=== PATIENT | female | born 1940 | race Caucasian/White ===

== ENCOUNTER → 2016-09-24 | Outpatient (CLI) | payer OTHER, MEDICARE ==
[2016-08-06 16:14] VITALS: BP 148/69
[~2016-09-24] MED LIST: REGADENOSON 0.4 MG/5 ML DISP.SYRIN. IV ONE
--- NOTE | 2016-09-24 13:16 | RAD ---
APPROVED REPORT Test Type: Pharmacological Stress Nurse/Tech: Edmond Campoverde RN Test Indications: Chest pain Cardiac History: see ehr Medications: see ehr Medical History: see ehr Resting ECG: SR Resting Heart Rate: 60 bpm Resting Blood Pressure: 132/67mmHg Pretest Chest Pain: None Nurse/Tech Notes Lungs CTA, S1, S2 Consent: The procedure was explained to the patient in lay terms. Informed consent was witnessed. Darnell eout was entered into [facility]. History and Stress Test performed by Yassine JainN[employer]. Details Pharmacologic stress testing was performed using 0.4mg per 5ml of regadenoson given intravenously ove r 7-10 seconds. Stress Symptoms No chest pain or symptoms. POST EXERCISE Reason for Termination: Infusion complete Max HR: 81 bpm Max Blood Pressure: 135/52mmHg Blood Pressure response to exercise: Normal blood pressure response during stress. Chest Pain: No. Arrhythmia: No. ST Change: No. INTERPRETATION Stress EKG Conclusion: Baseline EKG showed sinus rhythm. No ischemic changes at peak stress. No arr hythmias. Imaging Protocol IMAGE PROTOCOL: Rest Tc-99m/stress Tc-99m 1 day Rest: Stress: Viability: Radiopharm.Tc99m [id number] Sestamibi Dose11.9mCi 36.9mCi Duration 15min. 10min. Img Date 09/24/2016 09/24/2016 Inj-Img [id number]. 60min. Rest Admin Site:IV - Right AntecubitalAdministrator:ASHISH Solis, ARRT (R)(N) Stress Admin Site: IV - Right AntecubitalAdministrator: Parvez Virgen, RT (R)(N) STRESS DATA End Diast. Vol.84.0mlAv. Heart Rate66.0bpm LVEDV index BSA2.0mlCardiac Output0.1L/min End Syst. Vol.16.0mlCO Index BSA4.4L/min LVESV index BSA0.0mlMyocardial Wqax156.0g Eject. Dqzkeesb62.0% Stress Rates Pk. Fill Rate2.47EDV/secLVtime Pk. Fill 275.81msec Pk. Empty Rate4.85ESV/secLVtime Pk. Vjqge805.22msec 1/3 Pk. Fill1.31EDV/sec Stress Scores Regional WT0.00Summed WT1.00 Regional WM0.00Summed WM0.00 Study quality was good. Left Ventricular size was Normal at Rest and Stress. Lung uptake was Normal. Left Ventricular ejection fraction is 81%. The rest and stress images show normal perfusion, normal contraction and thickening. LV Perf. Quant 17 Seg. SSS0.00 17 Seg. SRS0.00 17 Seg. SDS0.00 Stress Defect Extent (% LAD)0.00Rest Defect Extent (% LAD)4.40Rev. Defect Extent (% LAD)0.00 Stress Defect Extent (% LCX) 0.00Rest Defect Extent (% LCX)0.00Rev. Defect Extent (% LCX)0.00 Stress Defect Extent (% RCA)0.00Rest Defect Extent (% RCA)0.00Rev. Defect Extent (% RCA)0.00 Stress Defect Extent (% CAL)0.00Rest Defect Extent (% CAL)1.50Rev. Defect Extent (% CAL)0.00 Conclusion 1. Regadenoson cardioisotope stress test did not show any evidence of ischemia or infarct. 2. Normal left ventricular systolic function with ejection fraction calculated at 81%. 3. Low risk for cardiac events.
== END | disposition home or self-care (01) ==
LOC: NM 08:04
PROVIDERS: ATTEND Nurse Practitioner
DX: R06.02 Shortness of breath (principal); R55 Syncope and collapse; I10 Essential (primary) hypertension; Z79.01 Long term (current) use of anticoagulants; R07.9 Chest pain, unspecified
CPT/HCPCS: 78452; 93017; 96374; 96375; 96376; A9500; J2785

== ENCOUNTER → 2017-02-01 | Outpatient (CLI) | payer MEDICARE, OTHER ==
[2016-08-06 16:14] VITALS: BP 148/69
[~2017-02-01] MED LIST changes: +ASPI-482 PO; +CHOL500016 PO; +CITA20TA5 PO; +HYDR12.53 PO; +IOHEXOL 180 MG/ML 10 ML VIAL. ONE; +LEVO125T5 PO; -REGADENOSON 0.4 MG/5 ML DISP.SYRIN. IV ONE; +methylPREDNISolone ACETATE 40 MG/ML VIAL. ONE; +methylPREDNISolone ACETATE 80 MG/ML VIAL. ONE
--- NOTE | 2017-02-02 04:20 | PAIN ---
DATE OF SERVICE: 02/01/2017 CHIEF COMPLAINT: Low back, bilateral lower extremity pain. HISTORY OF PRESENT ILLNESS: This is a 76-year-old female who presents with history of pain for "many years" worse over the past 6 months or so, pain in the low back radiating to bilateral lower extremities with leg tingling, it is constant, sharp, stabbing pain that is burning in the feet, worse with standing and walking, better with lying down. The patient reports no specific injury or accident that she is aware of. The pain became gradually over time. The patient reports it awakens her from sleep at least 1 or 2 times at night, does not affect her ability to change positions at night, lying on one side or the other, but still awakens her when she lays either right or left side. The patient reports it does affect her bowel and bladder control. She has actually had some urinary incontinence when the pain is at its worse, but does not have currently. The patient reports she is using a cane to walk mostly in her right hand, but it does affect her ability to walk significantly. The patient has had physical therapy, chiropractic treatment as well as exercise, which she does on her own now. Physical therapy ____. Current chiropractic treatment with a chiropractor with good results, but not long lasting. The patient reports no medications she has taken for the pain. She did have an MRI scan, which was in 07/2016, which shows degenerative disk and facet disease, greatest at L3-L4 and L4-L5 without high grade stenosis, right lateral recess stenosis at L4-L5 and L3-L4 showing mild central spinal canal narrowing and bilateral neural foraminal narrowing and also mild right lateral recess narrowing with L4-L5 showing moderate right lateral recess stenosis. The patient reports no loss of motor function, but significant fatigability of both legs when ambulating. The patient rates her disability rate from 0-10, 10 being the worst, as a 7 with family and home responsibilities, social activity, occupation, 5 with self care and life support activities. PAST MEDICAL HISTORY: Significant for arthritis, diarrhea, hypertension and shortness of breath, tuberculosis as a child with lung scarring by her report, basal cell carcinomas in the past, depression, neuropathy, bipolar disorder. PAST SURGICAL HISTORY: Includes thyroidectomy, total hysterectomy, bilateral mastectomies for fibrocystic breast disease, lung surgery for fibrosis and scarring from the tuberculosis. CURRENT MEDICATIONS: Include vitamin D, citalopram, daily baby aspirin, hydrochlorothiazide, levothyroxine. ALLERGIES: THE PATIENT ALLERGIC TO MORPHINE. FAMILY HISTORY: Significant for no major medical problems or conditions that she is aware of. SOCIAL HISTORY: The patient drinks alcohol only very rarely, does not smoke or use any other recreational or illicit drugs. She is single. Lives in ____ [place] and lives in her own home and is currently retired. REVIEW OF SYSTEMS: The patient's review of systems is positive for those items mentioned in history of present illness. All systems reviewed and otherwise negative. It is complete, full and well documented on the patient's chart. PHYSICAL EXAMINATION: VITAL SIGNS: Today, blood pressure is 150/69, pulse 63, respirations 16, temperature 97.7 degrees Fahrenheit, height is 5 feet 7 inches, weighs 177 pounds. GENERAL: The patient is awake, alert, oriented, appropriate, very pleasant demeanor. HEENT: Head shows normocephalic, atraumatic. Extraocular movements are intact and symmetrical. Oral cavity shows mucous membranes moist and pink. Dentition is intact. NECK: Shows anterior throat supple without palpable lymphadenopathy noted. Swallow reflex is symmetrical. Neck shows full rotational motion of the cervical spine without difficulty or tenderness including extension and flexion. CHEST: Shows normal on inspection. Breath sounds clear to auscultation bilaterally. HEART: Shows S1 and S2 clear. No murmurs auscultated. ABDOMEN: Soft, nontender, nondistended. No palpable organomegaly is noted. No rebound or guarding demonstrated. BACK: Shows spine grossly midline. Normal appearing thoracic kyphosis and lumbar lordotic curvature. No previous bruises, lesions, rashes or scars are noted. Lumbar paraspinous musculature shows symmetrical on inspection. With palpation shows normal muscle girth and firm musculature, which is moderately tender with palpation, but only diffusely in the middle and lower distribution. Paraspinous muscles again are symmetrical, no evidence of atrophy, hypertrophy, no trigger points, no radiation of pain, no tenderness over the spinous processes, sacrum or sacroiliac regions. The patient shows good rotation and motion of lumbar spine, both laterally greater than 10 degrees right and left as well as extension greater than 10 degrees, forward flexion 45 degrees without increase in pain. EXTREMITIES: Lower extremities show deep tendon reflexes at 1+ in the patellar and tendo calcaneus tendons are equal. Motor exam is strong with 5/5 dorsiflexion, extension, quadriceps and hamstring flexion and are symmetrical as well. Peripheral pulses are 1+ posterior tibial and dorsalis pedis pulses. No peripheral edema is noted. No clubbing, no cyanosis. Lower extremities are warm and dry to touch, equal in color and appearance. Straight leg raise noted to be negative for reproduction of radicular symptoms bilaterally as is Gaenslen's and Mike's maneuvers without pain reported bilaterally. The patient is able to stand, stand on her toes without difficulty or loss of balance, walking with a normal-appearing gait, does not have her cane with her today. She has a fairly normal gait without favoring the right or left lower extremity for short walk in the office. IMPRESSION: 1. This is a 76-year-old female with long history of low back pain radiating to the bilateral lower extremities in a radicular fashion. 2. MRI scan of lumbar spine as noted. 3. Arthritis. 4. Hypertension. 5. History of tuberculosis. PLAN: Options were discussed with the patient including conservative medical management, physical therapy, interventional techniques. She would like to pursue with interventional techniques as she is already doing the chiropractic and physical therapy and her own exercises. We discussed the lumbar epidural steroid injection using description as well as anatomical models to describe the procedure. Risks were then discussed including, but not limited to bleeding, infection, possibility of epidural hematoma and subsequent neurologic compromise, dural puncture, headaches, spinal cord and/or nerve damage, side effects of steroid medication and poor results regarding pain control. The patient understands and wishes to proceed. The patient will return to clinic in approximately 2 weeks for followup. She was counseled as to return appointment, activity level and side effects to be aware of. DIAGNOSES: Lumbar radiculopathy with lumbar spinal stenosis, lumbar degenerative disk disease. PROCEDURE: Lumbar epidural steroid injection in translaminar approach at the L3-L4 level using C-arm fluoroscopic guidance under sterile prep and drape using local anesthetic. Medication injected is 120 mg of Depo-Medrol plus 10 mL of preservative-free normal saline and 2 mL of Isovue for contrast. CONDITION AT DISCHARGE: Stable. The patient tolerated procedure well, had no complications. LYLY GARIBAY MD DR: Akila JOB#: [id number] / [id number]
== END | disposition home or self-care (01) ==
LOC: PNCL 09:13
PROVIDERS: ATTEND Anesthesiology
DX: M51.16 Intervertebral disc disorders with radiculopathy, lumbar region (principal); M48.06 Spinal stenosis, lumbar region; I10 Essential (primary) hypertension; M19.90 Unspecified osteoarthritis, unspecified site; F32.9 Major depressive disorder, single episode, unspecified; G62.9 Polyneuropathy, unspecified; F31.9 Bipolar disorder, unspecified; Z86.11 Personal history of tuberculosis; Z90.710 Acquired absence of both cervix and uterus; Z79.82 Long term (current) use of aspirin; Z88.5 Allergy status to narcotic agent; Z72.89 Other problems related to lifestyle; Z85.9 Personal history of malignant neoplasm, unspecified
CPT/HCPCS: 62323; J1030; J1040

== ENCOUNTER → 2017-02-16 | Outpatient (CLI) | payer OTHER ==
[2016-08-06 16:14] VITALS: BP 148/69
== END | disposition home or self-care (01) ==
LOC: PNCL 09:36
PROVIDERS: ATTEND Anesthesiology
DX: M51.16 Intervertebral disc disorders with radiculopathy, lumbar region (principal); M48.01 Spinal stenosis, occipito-atlanto-axial region; Z88.6 Allergy status to analgesic agent
CPT/HCPCS: 62323; J1030; J1040

== ENCOUNTER → 2017-03-15 | Outpatient (CLI) | payer OTHER ==
[2016-08-06 16:14] VITALS: BP 148/69
[~2017-03-15] MED LIST changes: +[UNRECOGNIZED DRUG - OTHER]
--- NOTE | 2017-03-15 23:33 | PAIN ---
DATE OF SERVICE: 03/15/2017 PROGRESS NOTE FOR PAIN CLINIC DIAGNOSES: Lumbar radiculopathy with lumbar spinal stenosis, lumbar degenerative disk disease. HISTORY OF PRESENT ILLNESS: The patient is a 77-year-old female who returns for followup status post lumbar epidural steroid injections x 2. The patient reports very good decrease in pain by about 50% overall. The patient reports no new motor or sensory deficits, no new changes, bowel or bladder incontinence or other complaints, but still has significant reduction in pain. She has been increasing activity with much greater ease and comfort. She is very pleased with her progress. No longer having significant pain radiating to the lower extremities, was worse on the right than the left only very occasionally in the legs, now just in the low back, more on the right side. The patient reports her pain is anywhere from a 6-8 on a scale 10. It is currently a 6 on a scale 10 today, aching and dull and also some occasional shooting pain, but again very infrequently on the shooting pain. The patient also has some tingling in her feet bilaterally, which she attributes to peripheral neuropathy. The patient has no new motor or sensory deficits, no bowel or bladder incontinence or other complaints, sleeping better at night. Reports much better with sitting and lying down, not awaking her up at this time. PHYSICAL EXAMINATION: VITAL SIGNS: The patient's blood pressure 152/72, pulse 71, respirations are 20, temperature 97.8 degrees Fahrenheit, height is 5 feet 7 inches, weighs 175 pounds. GENERAL: The patient is awake, alert, oriented, appropriate, very pleasant demeanor. HEENT: Head shows normocephalic, atraumatic. Extraocular movements are intact, symmetrical. Oral cavity, mucous membranes are moist and pink. Dentition is intact. NECK: Shows anterior throat supple without palpable lymphadenopathy noted. Swallow reflex is symmetrical. Neck shows full rotational motion of cervical spine, both laterally greater than 45 degrees right and left as well as full extension, full forward flexion without pain or discomfort. CHEST: Shows normal with inspection. Breath sounds clear to auscultation bilaterally, no rales, rhonchi or wheezes are auscultated. HEART: Shows S1 and S2 clear. No murmurs are auscultated. ABDOMEN: Soft, nontender, nondistended. No palpable organomegaly, no rebound or guarding demonstrated. BACK: Shows spine grossly in the midline. Normal appearing thoracic kyphosis, cervical lordotic curvature and lumbar lordotic curvature. Lumbar paraspinous muscle shows symmetrical on inspection with palpation shows some mild tenderness in the low to mid distribution of paraspinous muscles, but only diffusely without radiation. The patient has good rotation and motion both laterally greater than 10 degrees right and left as well as extension greater than 10 degrees, forward flexion at 45 degrees without significant pain reported as well. The patient shows no tenderness over the spinous processes, sacrum or sacroiliac regions. EXTREMITIES: Lower extremities showed deep tendon reflexes at 1+/4 in the patellar and tendo calcaneus tendons are equal. Motor exam is strong with dorsiflexion, extension, quadriceps and hamstring flexion rated as 5/5 and symmetrical. Peripheral pulses are 1+ in the posterior tibial and dorsalis pedis pulses. No peripheral edema is noted. No clubbing or cyanosis. The patient is able to stand, stand on her toes without significant difficulty. She is walking with a normal appearing gait, not using any assistive device to ambulate. Options were discussed with the patient and the patient's old chart was reviewed as her current medication regimen and updated. Current review of systems updated today as well. We will proceed with a third in the series of lumbar epidural steroid injection today with fluoroscopic guidance. Risks were again discussed including, but not limited to bleeding, infection, possibility of epidural hematoma, subsequent neurologic compromise, dural puncture, headaches, spinal cord and/or nerve damage, side effects of steroid medication and poor results regarding pain control. The patient understands and wishes to proceed. The patient will return to the clinic in approximately 2 weeks for followup. She was counseled to return appointment, activity level and side effects to be aware of. Also discussed increasing the patient's activity as tolerated with stretching and strengthening exercises discussed as well. Also, the patient will keep a very close eye on her blood pressure, as she reports she has taken herself off of her blood pressure medication. I encouraged her to discuss this with her primary care physician. She reports that she will do this because she is thinking of having a checkup here soon anyway. As she has the palpitations now at home, I strongly encouraged her to make that appointment sooner than later. The patient understands and agrees and will follow up as scheduled. DIAGNOSIS: Lumbar radiculopathy with lumbar degenerative disk disease, lumbar spinal stenosis. PROCEDURE: Lumbar epidural steroid injection in translaminar approach in the L3-L4 level using C-arm fluoroscopic guidance under sterile prep and drape using local anesthetic. MEDICATIONS INJECTED: A total of 120 mg Depo-Medrol plus 10 mL preservative-free normal saline and 2 mL Isovue for contrast. CONDITION AT DISCHARGE: Stable. The patient tolerated the procedure well, had no complications. LYLY GARIBAY MD DR: JOSE F/abhijeet JOB#: [id number] / [id number]
== END | disposition home or self-care (01) ==
LOC: PNCL 11:33
PROVIDERS: ATTEND Anesthesiology
DX: M51.16 Intervertebral disc disorders with radiculopathy, lumbar region (principal); M48.06 Spinal stenosis, lumbar region; Z88.6 Allergy status to analgesic agent
CPT/HCPCS: 62323; J1030; J1040

== ENCOUNTER → 2017-10-21 | Outpatient (CLI) | payer OTHER ==
[~2017-10-21] MED LIST changes: -ASPI-482 PO; -CHOL500016 PO; -CITA20TA5 PO; -HYDR12.53 PO; +IOHEXOL 180 MG/ML 10 ML VIAL.; -IOHEXOL 180 MG/ML 10 ML VIAL. ONE; -LEVO125T5 PO; -[UNRECOGNIZED DRUG - OTHER]; +methylPREDNISolone ACETATE 40 MG/ML VIAL.; -methylPREDNISolone ACETATE 40 MG/ML VIAL. ONE; +methylPREDNISolone ACETATE 80 MG/ML VIAL.; -methylPREDNISolone ACETATE 80 MG/ML VIAL. ONE
== END | disposition home or self-care (01) ==
LOC: PNCL 13:05
DX: M51.16 Intervertebral disc disorders with radiculopathy, lumbar region (principal); G89.29 Other chronic pain; M48.061 Spinal stenosis, lumbar region without neurogenic claudication; Z79.82 Long term (current) use of aspirin; Z79.899 Other long term (current) drug therapy; Z87.448 Personal history of other diseases of urinary system
CPT/HCPCS: 62323; J1030; J1040; Q9965

== ENCOUNTER → 2017-11-04 | Outpatient (CLI) | payer OTHER | END | disposition home or self-care (01) | LOC: PNCL 10:07 | DX: M51.16 Intervertebral disc disorders with radiculopathy, lumbar region (principal); M48.061 Spinal stenosis, lumbar region without neurogenic claudication; G89.29 Other chronic pain; Z88.6 Allergy status to analgesic agent; Z79.899 Other long term (current) drug therapy | CPT/HCPCS: 62323; J1030; J1040; Q9965 ==

== ENCOUNTER → 2017-11-30 | Outpatient (CLI) | payer OTHER | LOC: PNCL 10:00 | DX: M51.16 Intervertebral disc disorders with radiculopathy, lumbar region (principal); M48.061 Spinal stenosis, lumbar region without neurogenic claudication | CPT/HCPCS: 62323; J1030; J1040; Q9965 ==

== ENCOUNTER → 2020-08-12 | Outpatient (CLI) | payer OTHER ==
[2016-08-06 16:14] VITALS: BP 148/69
[~2020-08-12] MED LIST changes: +ASPI-482 PO; +CHOL500016 PO; +CITA20TA6 PO; +HYDR12.575 PO; -IOHEXOL 180 MG/ML 10 ML VIAL.; +IOHEXOL 180 MG/ML 10 ML VIAL. ONE; +LEVO125T5 PO; +[UNRECOGNIZED DRUG - OTHER]; -methylPREDNISolone ACETATE 40 MG/ML VIAL.; +methylPREDNISolone ACETATE 40 MG/ML VIAL. ONE; -methylPREDNISolone ACETATE 80 MG/ML VIAL.; +methylPREDNISolone ACETATE 80 MG/ML VIAL. ONE
--- NOTE | 2020-08-12 09:51 | PDOC ---
Progress Note - Pain Clinic Date of Service: DOS: DATE: 08/12/20 TIME: 09:48 Diagnosis: Dx: Lumbar radiculopathy with lumbar spinal stenosis and lumbar degenerative disc disease History or Present Illness: HPI: 80-year-old female returns for follow-up last seen November 2017 patient underwent lumbar epidural steroid injections with very good results patient reports about 75% improvement at that time patient reports that she has had some increasing pain over the past year to year and a half but has been putting off getting geovani toribio patient reports she has increased neuropathy in both of her feet saline flat on her back helps decrease the pain as is sitting and generalized not awaken her from sleep at night patient reports initially she was doing great after last injection with distance walking doing household activities try with greater ease and comfort as well. Patient rates her pain now over the past several months has been about a 9 on a scale of 10 is worst least an average is a 9 today patient which is sharp and shooting constant in the low back and the left side rating the posterior gluteus posterior lateral thigh anterior thigh and groin at times on the left side only. Patient reports no motor or sensory deficits no bowel or bladder incontinence but significant increasing pain in the low back and left lower extremity. Patient reports she has held her Eliquis now for approximately 3 days. Physical Exam: VS: Blood pressure is 137/65 pulse 57 respirations are 20 temperature is 98.0 F height is 5 foot 6 inches weight is 170 pounds PE: PHYSICAL EXAMINATION: GENERAL: The patient is awake, alert, oriented, appropriate, very pleasant demeanor HEENT: Shows normocephalic, atraumatic. Extraocular movements are intact and symmetrical. Oral cavity: Mucous membranes moist and pink. Dentition is intact. NECK: Shows anterior throat supple without palpable lymphadenopathy noted. Swallow reflex symmetrical. CHEST: Shows normal on inspection. Breath sounds are clear bilaterally, no rales rhonchi or wheezes. HEART: Shows S1, S2 clear. No murmurs auscultated. ABDOMEN: Soft, nontender, nondistended, obese. No palpable organomegaly is noted. No rebound or guarding demonstrated. BACK: Shows spine grossly in the midline. Normal-appearing cervical lordotic curvature. There is slightly increased thoracic kyphosis, some minor flattening of the lumbar lordotic curvature. Lumbar paraspinous muscles show symmetrical on inspection, on palpation shows some moderate tenderness diffusely throughout the upper, middle and lower distribution of the paraspinous muscles, but without specific trigger points, without radiation of pain. The patient has good rotational motion of the lumbar spine, both laterally as well as extension and flexion without significant difficulty. No tenderness over the spinous processes, sacrum or sacroiliac regions. EXTREMITIES: Lower extremities show deep tendon reflexes 1+ in the patellar and tendo calcaneus tendons. Motor exam is 5 on a scale of 5 with right dorsiflexi on, extension, quadriceps and hamstring flexion and 5/5 on the left. Peripheral pulses are 1+ posterior tibial. No peripheral edema is noted bilaterally. Lower extremities are warm and dry to touch, equal in color and appearance. SKIN: Shows warm and dry, good turgor. No edema. No sores, rashes or bruising throughout. Procedure: Procedure: Options were discussed with the patient. Patient chart was reviewed as her current medication regimen updated current review of systems updated today as well. We will proceed with a first in the series lumbar epidural steroid injection today with fluoroscopic guidance. Risks were discussed including but not limited to: Bleeding, infection, possibility of epidural hematoma and subse quent neurological compromise, dural puncture, headaches, spinal cord and/or nerve damage, side effects of steroid medication, and poor results regarding pain control. Patient understands wished to proceed. She will return to clinic in approximate 2 weeks and follow-up with counselors return appointment typical and side effects to be aware of. Patient will restart her Eliquis August 13 Medication Injected: Med Injected: Procedure is lumbar epidural steroid injection under local anesthetic using sterile prep and drape at the L3-4 level using C-arm fluoroscopic guidance in both AP and lateral views medications injected is 120 mg Depo-Medrol + 10 mL preservative-free normal saline and 2 mL contrast- condition at discharge is stable patient tolerated procedure well had no complications. Condition at Discharge: Condition at Discharge: Condition at discharge stable, patient tolerated procedure well and had no complications. LYLY GARIBAY MD Aug 12, 2020 09:51
== END | disposition home or self-care (01) ==
LOC: PNCL 09:10
PROVIDERS: ATTEND Anesthesiology
DX: M51.16 Intervertebral disc disorders with radiculopathy, lumbar region (principal); M48.061 Spinal stenosis, lumbar region without neurogenic claudication; Z79.82 Long term (current) use of aspirin; Z79.899 Other long term (current) drug therapy; Z98.890 Other specified postprocedural states; Z88.8 Allergy status to other drugs, medicaments and biological substances; Z72.89 Other problems related to lifestyle
CPT/HCPCS: 62323; J1030; J1040; Q9965

== ENCOUNTER → 2020-11-22 | Outpatient (CLI) | payer OTHER ==
[2016-08-06 16:14] VITALS: BP 148/69
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
--- NOTE | 2020-11-22 10:07 | PDOC4 ---
PROCEDURE Procedure Patient was consented for lumbar epidural steroid injection. Risks were dis cussed including but not limited to: Bleeding, infection, possibility of epidural hematoma and subsequent neurological compromise, dural puncture, headaches, spinal cord and/or nerve damage, side effects of steroid medication, and poor results regarding pain control. Patient understands and wished to proceed. Procedure is lumbar epidural steroid injection under local anesthetic using sterile prep and drape at the L3-4 level using C-arm fluoroscopic guidance in both AP and lateral views medications injected is 120 and mg Depo-Medrol + 10 mL preservative-free normal saline and 2 mL contrast- condition at discharge is stable patient tolerated procedure well had no complications. LYLY GARIBAY MD Nov 22, 2020 10:07
== END | disposition home or self-care (01) ==
LOC: PNCL 09:00
PROVIDERS: ATTEND Anesthesiology
DX: M51.16 Intervertebral disc disorders with radiculopathy, lumbar region (principal); M48.061 Spinal stenosis, lumbar region without neurogenic claudication; Z79.82 Long term (current) use of aspirin; Z79.899 Other long term (current) drug therapy; Z72.89 Other problems related to lifestyle; Z88.8 Allergy status to other drugs, medicaments and biological substances
CPT/HCPCS: 62323; J1030; J1040; Q9965

== ENCOUNTER → 2021-09-23 | Outpatient (CLI) | payer OTHER ==
[2016-08-06 16:14] VITALS: BP 148/69
[~2021-09-23] MED LIST changes: +APIX5TAB PO; +CARV25TA2 PO; +CITA40TA12 PO; +LEVO100T5 PO; +LISI-130 PO; +MELA5TAB PO; +[UNRECOGNIZED DRUG - OTHER]; -methylPREDNISolone ACETATE 40 MG/ML VIAL. ONE; -methylPREDNISolone ACETATE 80 MG/ML VIAL. ONE
--- NOTE | 2021-09-23 11:57 | PDOC ---
Progress Note - Pain Clinic Date of Service: DOS: DATE: 09/23/21 TIME: 11:51 Diagnosis: Dx: Lumbar radiculopathy with lumbar degenerative disc disease lumbar spinal stenosis Right shoulder joint pain with osteoarthritis Left knee joint pain with osteoarthritis History or Present Illness: HPI: 81-year-old female returns at last seen November 2020 patient did very well after lumbar epidural steroid injection x2 patient reports the pain is 80% improved for about 10 months the pain is been returning now over the past few weeks hay muñoz reports that in the low back itself and where previously it was mostly on the left side now is on the right side patient reports that she was doing very well with increasing activity walking greater distances doing household activities also moved from her home in [facility] to be closer to her daughter in [facility]. Patient reports after the move the pain began to become more noticeable and is now in the right lower extremity greater than the left in the posterior gluteus lateral thigh anterior thigh medial thigh some in the groin as well worse with walking standing change positions patient reports a 10 on scale 10 at its worst is a 5 on at least 5 on average is a 5 today. Patient reports no loss of motor function with significant fatigability with lower extremity specially on the right side with ambulation and standing. Patient reports also significant pain in the right shoulder as well as the left knee with history of osteoarthritis in both with total knee replacement on the left. Physical Exam: VS: Blood pressure is 156/77 pulse 57 respirations 18 temperature is 98.2 F height is 5 foot 7 inches weight is 174 pounds. PE: PHYSICAL EXAMINATION: GENERAL: The patient is awake, alert, oriented, appropriate, very pleasant in demeanor HEENT: Shows normocephalic, atraumatic. Extraocular movements are intact and symmetrical. Oral cavity: Mucous membranes moist and pink. NECK: Shows anterior throat supple without palpable lymphadenopathy noted. Swallow reflex symmetrical. CHEST: Shows normal on inspection. Breath sounds are clear bilaterally. HEART: Shows S1, S2 clear. No murmurs auscultated. ABDOMEN: Soft, nontender, nondistended. No palpable organomegaly is noted. No rebound or guarding demonstrated. BACK: Shows spine grossly in the midline. Normal-appearing cervical lordotic curvature. There is moderately increased thoracic kyphosis, some mild flattening of the lumbar lordotic curvature. Lumbar paraspinous muscles show symmetrical on inspection, on palpation shows some moderate tenderness diffusely throughout the upper, middle and lower distribution of the paraspinous muscles, but without specific trigger points, without radiation of pain. The patient has good rotational motion of the lumbar spine, both laterally as well as extension and flexion without significant difficulty. No tenderness over the spinous processes, sacrum or sacroiliac regions. EXTREMITIES: Lower extremities show deep tendon reflexes 1+ in the patellar and tendo calcaneus tendons. Motor exam is 4 on a scale of 5 with right dorsiflexion, extension, quadriceps and hamstring flexion and 5/5 on the left. Peripheral pulses are 1 posterior tibial. No peripheral edema is noted bilaterally. Lower extremities are warm and dry to touch, equal in color and appearance. SKIN: Shows warm and dry, good turgor. No edema. No sores, rashes or bruising throughout. Procedure: Procedure: Options were discussed with patient. Patient's old chart was reviewed as her current medication regimen updated current review of systems updated today as well. We will proceed with a lumbar epidural steroid injection today with fluoroscopic guidance. Risks were discussed including but not limited to: Blee ding, infection, possibility of epidural hematoma and subsequent neurological compromise, dural puncture, headaches, spinal cord and/or nerve damage, side effects of steroid medication, and poor results regarding pain control. Patient understands and wished to proceed. Patient will return to the clinic in approximately 2 weeks for follow-up, was counseled as to return appointment, activity level, and side effects to be aware of. Medication Injected: Med Injected: Procedure is lumbar epidural steroid injection under local anesthetic using sterile prep and drape at the L3-4 level using C-arm fluoroscopic guidance in both AP and lateral views medications injected is 20 mg dexamethasone +10mL preservative-free normal saline and 2 mL contrast- condition at discharge is stable patient tolerated procedure well had no complications. Condition at Discharge: Condition at Discharge: Condition at discharge is stable, patient tolerated the procedure well and had no complications. LYLY GARIBAY MD Sep 23, 2021 11:57
--- NOTE | 2021-09-23 11:58 | PDOC4 ---
Procedure Note: ICD 10 Code: ICD 10 Code: M54.16 M51.36 M4 8.02 Procedure Note: Patient was consented for lumbar epidural steroid injection with fluoroscopic guidance. Risks were discussed including but not limited to: Bleeding, infection, possibility of epidural hematoma and subsequent neurological compromise, dural puncture, headaches, spinal cord and/or nerve damage, side effects of steroid medication, and poor results regarding pain control. Patient understands and wished to proceed. Procedure is lumbar epidural steroid injection under local anesthetic using janett rile prep and drape at the L3-4 level using C-arm fluoroscopic guidance in both AP and lateral views medications injected is 20 mg dexamethasone +10mL preservative-free normal saline and 2 mL contrast- condition at discharge is stable patient tolerated procedure well had no complications. LYLY GARIBAY MD Sep 23, 2021 11:57
== END | disposition home or self-care (01) ==
LOC: PNCL 11:01
PROVIDERS: ATTEND Anesthesiology
DX: M51.16 Intervertebral disc disorders with radiculopathy, lumbar region (principal); M48.061 Spinal stenosis, lumbar region without neurogenic claudication; M19.011 Primary osteoarthritis, right shoulder; M17.12 Unilateral primary osteoarthritis, left knee; Z79.899 Other long term (current) drug therapy; Z72.89 Other problems related to lifestyle; Z98.890 Other specified postprocedural states; Z88.6 Allergy status to analgesic agent
CPT/HCPCS: 62323; Q9965

== ENCOUNTER → 2021-10-30 | Outpatient (CLI) | payer OTHER ==
[2016-08-06 16:14] VITALS: BP 148/69
[~2021-10-30] MED LIST changes: +BUPIVACAINE MPF 0.25% 10 ML VIAL. ONE; +DEXAMETHASONE PRES.FREE 10 MG/ML VIAL. ONE
--- NOTE | 2021-10-30 15:43 | PDOC ---
Progress Note - Pain Clinic Date of Service: DOS: DATE: 10/30/21 TIME: 15:37 Diagnosis: Dx: Lumbar radiculopathy with lumbar degenerative disc disease and lumbar spinal stenosis Right shoulder joint pain with osteoarthritis Left knee joint pain with osteoarthritis status post total knee arthroplasty History or Present Illness: HPI: 81-year-old female returns for follow-up status post lumbar epidural steroid injection x1. Patient reports of near 100% improvement in the low back right lower extremity pain patient is been increase her activity to greater ease and comfort walking greater distances sleeping better at night doing household activities travel with greater ease as well. Patient's chief complaint today however is right shoulder pain which she has had for several years with a previous diagnosis of osteoarthritis with significant tenderness with external rotation and abduction as well as reaching forward with weightbearing in the right shoulder. Patient reports is anterior and superior to the shoulder as well as lateral on the shoulder with repetitive motions weightbearing raising her right hand and he has to support her arm with her left hand to raise it over her head. Patient reports her pain is 8 on scale 10 is worst 8 on average and a 5 its least regarding her shoulder over the last week. Patient ports stabbing sharp on and off in intensity better with resting or sitting and not using the right upper extremity. Patient reports no motor loss but significant fatigability of the right arm with repetitive motion. Physical Exam: VS: Blood pressure 193/84 pulse 50 respirations 18 temperature 98.2 F height 5 feet 7 inches weight is 169 pounds. PE: PHYSICAL EXAMINATION: GENERAL: The patient is awake, alert, oriented, appropriate, very pleasant in demeanor HEENT: Shows normocephalic, atraumatic. Extraocular movements are intact and symmetrical. NECK: Shows anterior throat supple without palpable lymphadenopathy noted. Swallow reflex symmetrical. CHEST: Shows normal on inspection. Breath sounds are clear bilaterally. HEART: Shows S1, S2 clear. No murmurs auscultated. ABDOMEN: Soft, nontender, nondistended. No palpable organomegaly is noted. No rebound or guarding demonstrated. BACK: Shows spine grossly in the midline. Normal-appearing cervical lordotic curvature. There is moderately increased thoracic kyphosis, some flattening of the lumbar lordotic curvature. Lumbar paraspinous muscles show symmetrical on inspection, on palpation shows some moderate tenderness diffusely throughout the upper, middle and lower distribution of the paraspinous muscles without specific trigger points, without radiation of pain. The patient has good rotational motion of the lumbar spine, both laterally as well as extension and flexion without significant difficulty. No tenderness over the spinous processes, sacrum or sacroiliac regions. EXTREMITIES: Lower extremities show deep tendon reflexes 1+ in the patellar and tendo calcaneus tendons. Motor exam is 4 on a scale of 5 with right dorsiflexion, extension, quadriceps and hamstring flexion and 5/5 on the left. Peripheral pulses are 1 posterior tibial. No peripheral edema is noted bilaterally. Lower extremities are warm and dry to touch, equal in color and appearance. Upper extremity show deep tendon reflexes 2+ in the bicep triceps tendons, motor exam strong with day habilitation specialist strength rated 5 out of 5 bicep tricep flexion is 4-5 on the right with significant pain in the anterior aspect of the deltoid but not on the left. Patient's right shoulder shows significant tenderness with abduction past 90 degrees and with resistance but is nontender on the left side with full rotation of motion. Patient significant tenderness over the acromioclavicular joint as well as the anterior aspect of the glenohumeral joint and the lateral aspect in the deltoid on the lateral aspect on the right only. SKIN: Shows warm and dry, good turgor. No edema. No sores, rashes or bruising throughout. Procedure: Procedure: Options were discussed with patient. Patient's old chart was reviewed as was her current medication regimen updated, and current review of systems updated today as well. We will proceed with a right intra-articular shoulder joint injection today with fluoroscopic guidance. Risk were discussed including but not limited to bleeding infection possibility of intravascular injection sequelae spread local anesthetic numbness side effects of steroid medication exposure to fluoroscopy and poor results regarding pain control. Patient understands and wished to proceed. Patient will return to the clinic in approximately 4 weeks for follow-up, was counseled as to return appointment, activity level, and side effect to be aware of. Medication Injected: Med Injected: Patient supine position under sterile prep and drape using C-arm fluoroscopic guidance patient's right shoulder was visualized and using 25-gauge needle 1% lidocaine was used to topically anesthetized area over the glenohumeral joint on the right. Using a 22-gauge Quincke needle with stylette the joint was entered under direct fluoroscopic visualization without difficulty stylet was removed at this time 1.5 cc of contrast was injected with good intra-articular spread in the shoulder joint without uptake. At this time 3 cc of 0.25% bupivacaine and 15 mg dexamethasone was then injected into the joint. Needle was removed and sterile bandage was applied. Patient tolerated the procedure well and had no complications. Condition at Discharge: Condition at Discharge: Condition at discharge is stable, patient tolerated procedure well and had no complications. LYLY GARIBAY MD Oct 30, 2021 15:43
--- NOTE | 2021-10-30 15:43 | PDOC4 ---
Procedure Note: ICD 10 Code: ICD 10 Code: M2 5.511 M1 9.011 Procedure Note: Patient was consented for right intra-articular shoulder joint injection with fluoroscopic guidance. Risks discussed including but not limited to bleeding infection possibility of intravascular injection sequelae spread of local anesthetic numbness side effects steroid medication exposure to fluoroscopy and portals regarding pain control. Patient understands wished to proceed. Patient supine position under sterile prep and drape using C-arm fluoroscopic guidance patient's right shoulder was visualized and using 25-gauge needle 1% lidocaine was used to topically anesthetized area over the glenohumeral joint on the right. Using a 22-gauge Quincke needle with stylette the joint was entered under direct fluoroscopic visualization without difficulty stylet was removed at this time 1.5 cc of contrast was injected with good intra-articular spread in the shoulder joint without uptake. At this time 3 cc of 0.25% bupivacaine and 15 mg dexamethasone was then injected into the joint. Needle was removed and sterile bandage was applied. Patient tolerated the procedure well and had no complications. LYLY GARIBAY MD Oct 30, 2021 15:43
== END | disposition home or self-care (01) ==
LOC: PNCL 14:15
PROVIDERS: ATTEND Anesthesiology
DX: M19.011 Primary osteoarthritis, right shoulder (principal); M17.12 Unilateral primary osteoarthritis, left knee; M51.16 Intervertebral disc disorders with radiculopathy, lumbar region; M48.061 Spinal stenosis, lumbar region without neurogenic claudication; Z96.652 Presence of left artificial knee joint; Z79.899 Other long term (current) drug therapy; Z72.89 Other problems related to lifestyle; Z88.6 Allergy status to analgesic agent
CPT/HCPCS: 20610; 77002; J1100; J3490; Q9965